=== PATIENT | female | born 1940 | race Caucasian/White ===

== ENCOUNTER 2018-05-23 17:22 | Emergency (ER) | payer MEDICARE, OTHER ==
[~2018-05-23] VITALS: Ht 152.4 cm; Wt 62.6 kg
[~2018-05-23 17:22] MED LIST: LEVOTHYROXINE150 MCG PO; LOSARTAN-HCTZ1 EACH PO; MIRAPEX0.5 MG PO; VENLAFAXINE HCL75 MG PO
== END 2018-05-23 18:58 | disposition home or self-care (01) ==
LOC: ED 17:22
DX: S93.401A Sprain of unspecified ligament of right ankle, initial encounter (principal); X50.9XXA Other and unspecified overexertion or strenuous movements or postures, initial encounter; I10 Essential (primary) hypertension; E03.9 Hypothyroidism, unspecified; Z79.899 Other long term (current) drug therapy
CPT/HCPCS: 73590; 73610; 73630; 99283

== ENCOUNTER 2022-01-22 12:59 | Inpatient (IN) | payer MEDICARE, OTHER ==
[~2022-01-22] VITALS: Ht 152.4 cm; Wt 58.2 kg
[2022-01-22] MEDS ORDERED: VENLAFAXINE HCL75 M1 PO (14:20)
[2022-01-22] MEDS ORDERED: LEVOTHYROXINE75 MCG PO (14:21)
[2022-01-22] MEDS ORDERED: PRAMIPEXOLE0.125 MG PO (14:21)
[2022-01-22] MEDS ORDERED: VITAMIN D21250 MCG PO (14:22)
[2022-01-22] MEDS ORDERED: LOSARTAN-HCTZ1 EAC2 PO (14:22)
--- NOTE | 2022-01-22 19:59 | NUR ---
IN ROOM TO COMPLETE ADMISSION HX WITH PT. SHE IS DROWSY AFTER RECEIVING PAIN MEDICATION NOT LONG AGO. SHE ANSWERS SOME QUESTIONS APPROPRIATELY BUT OTHER QUESTIONS SHE WAS ANSWERING FOR HER RAY WHICH IS NOT PRESENT. IV FLUIDS ARE INFUSING PER MD ORDERS AND PT IS RESTING WITH EYES CLOSED. RR IS EVEN AND UNLABORED. CALL LIGHT IS CLOSE AND BED ALARM IS ON.
--- NOTE | 2022-01-22 22:06 | NUR ---
SURGEON IN TO SEE PT. PT DENIES ANY NEEDS. NOT IN PAIN AT THIS TIME. CALL LIGHT WITHIN REACH.
--- NOTE | 2022-01-23 01:00 | NUR ---
HAS BEEN DOZING OFF AND ON. TOOK MEDS WITH SIP OF WATER. AWARE OF NPO STATUS. TORADOL GIVEN FOR PAIN. EKG COMPLETED BY RT.
--- NOTE | 2022-01-23 01:10 | NUR ---
ECG DONE AND PLACED IN CHART.
--- NOTE | 2022-01-23 04:05 | NUR ---
PT COMPLAINING OF HER ABDOMEN HURTING. "7-8" PT LAYING ON HER LEFT SIDE, MOANING. PT GIVEN 4 MG IV MORPHINE SLOW PUSH. CALL LIGHT IN REACH.
--- NOTE | 2022-01-23 06:18 | NUR ---
PT AMBULATES TO BR WITHOUT ANY ISSUE. HAS BEEN MEDICATED WITH MORPHINE AND TORADOL NEEDED. MORPHINE GIVEN X2 AND TORADOL ONCE. NPO SINCE ARRIVAL TO FLOOR WITH THE EXCEPTION OF SIPS WITH MEDS LAST NIGHT. HAS HAD NO C/O NAUSEA THIS SHIFT.
--- NOTE | 2022-01-23 07:28 | NUR ---
REPORT RECEIVED FROM LESA GUERRA. PT RESTING ON LEFT SIDE WITH EYES CLOSED. RESPIRATIONS EVEN AND UNLABORED. BED RAILS UP. CALL LIGHT WITHIN REACH. PT ALLOWED TO REST.
--- NOTE | 2022-01-23 07:55 | NUR ---
PT AWAKE IN BED TALKING ON THE PHONE. WHITE BAORD UPDATED. CALL LIGHT IN REACH. BED ALARM ON. NO FURTHER NEEDS AT THIS TIME.
--- NOTE | 2022-01-23 08:40 | NUR ---
MORNING ASSESSMENT AND MEDICAITON DUE. PT RETURNED FROM X-RAY. PT NAUSEATED WITH MOVEMENT AND LESA AGRCIA, REPORTS THAT PT HAS SOME EMESIS WHILE GETTING BACK INTO BED. PT REPORTS 4/10 PAIN IN RIGHT UPPER QUADRANT OF ABDOMENT. SEE MAR FOR MEDICATIONS GIVEN. PT VERY DROWSY, PT OPENS EYES TO VOICE BUT STAIRS OFF INTO SPACE, DOES NOT WANT TO TRACK THIS RN'S FINGER WITH EYES. PT REPORTS FEELING CONFUSED. PT ORIENTED TO PLACE, EVENTS, SELF AND SITUATION. PT DISORIENT TO DATE/TIME/YEAR. PT VERY MINIMAL WITH WORDS. PT DOES STATE "OW" FRQUENTLY. PUPILS PINPOINT. RESPIRATORY RATE OF 10-12 WITH OXGYEN SATURATION OF 90% ON ROOM AIR. PT PLACED ON 2L O2 BY NC TO MAINTAIN OXYGEN SATURATIONS ABOVE 94%. CRACKELS NOTED IN BASES OF LUNGS. I.S. PROVIDED. SCD'S IN PLACE. BOWEL TONES HYPOACTIVE. ABDOMEN TENDER TO TOUCH AND PT REPORTS ABDOMEN FEELS SWOLLEN. MILD DISTENTION NOTED. ABDOMEN REMAINS SOFT. LESA GARCIA, REPORTS PT HAD STRESS INCONTINACE WITH EMESIS EPSODE. MEDICATIONS GIVEN WITH A SMALL SIP OF WATER. PT RESTING IN BED ON BACK, BED RAILS UP. CALL LIGHT WITHIN REACH.
--- NOTE | 2022-01-23 08:54 | NUR ---
THIS RN TO ROOM TO CHECK ON PT. PT REPORTS 0/10 PAIN STATING "IT'S BETTER NOW. PT DENIES NAUSEA. PT REMAINS VERY DROWSY AND HAS TROUBLE KEEPING EYES OPEN. 2L O2 BY NC REMAIN IN PLACE. CALL LIGHT WITHIN REACH. HEAD OF BED ELEVATED TO 30 DEGREES. BED RAILSUP.
--- NOTE | 2022-01-23 09:34 | NUR ---
DR. WARNER TO BEDSIDE. UPDATED ON PT STATUS. NEW ORDERS FOR POTASSIUM AND MAGNESIUM. GIVEN BY LESA RICHTER. PT REPORTS 2/10 PAIN IN RIGHT UPPER QUADRANT. PT UPDATED ON PLAN OF CARE. PTS PARNTER AT BEDSIDE, UPDATED ON PLAN OF CARE. NO ADDITIONAL REQUESTS OR COMPLAINTS. CALL LIGHT WITHIN REACH. BED RAILS UP.
--- NOTE | 2022-01-23 10:04 | NUR ---
PT READY FOR SURGERY, PRE OP CHECK LIST COMPLETE. CONSENT SIGNED. PT UP TO RESTROOM TO VOID WITH STAND BY ASSIST. PT REPROTS 2/10 PAIN IN RIGHT UPPER QUADRANT. PT DENIES NAUSEA. CHG WIPE DOWN COMPLETED. PT VERBALIZES UNDERSTANDING OF PROCEEDURE AND STATES HER QUESTIONS HAVE BEEN ANSWERED. NO ADDITIONAL REQUESTS OR COMPLAINTS AT THIS TIME. AWAITING OR TEAM ARRIVAL. BED RAILS UP. CALL LIGHT WITHIN REACH.
--- NOTE | 2022-01-23 10:08 | NUR ---
PRE OP WIPES AND GOWN CHANGE IN PREP FOR SURGERY. RESTS COMFORTABLY IN BED. NO NEEDS VOICED.
--- NOTE | 2022-01-23 10:41 | NUR ---
CALL PLACED TO DR WARNER FOR CLARIFICATIN ON POTASSIUM ORDERS. AWAITING CALL BACK.
--- NOTE | 2022-01-23 10:44 | NUR ---
CALL PLACED TO SARA KELLOGG, PTS DAUGHTER, PT PT REQUEST. NO ANSWER AT THIS TIME. MESSAGE LEFT REQUESTING RETURN CALL.
--- NOTE | 2022-01-23 10:46 | NUR ---
SARA KELLOGG, RETURNED PHONE CALL. SARA UPDATED ON PTS STATUS AND PLAN OF CARE. SARA VERBALIZES UNDERSTANDING AND STATES HER QUESTIONS HAVE BEEN ANSWERED.
--- NOTE | 2022-01-23 11:27 | NUR ---
RETURN CALL FROM DR. WARNER WHO STATES TO GIVE POTASSIUM ORDERED.
--- NOTE | 2022-01-23 11:33 | NUR ---
THIS RN TO ROOM TO CHECK ON PT. PT RESTING IN BED ON BACK. PT ALERT AND ORIENTED. 1ST DOES OF POTASSIUM CONTINUES TO INFUSE, 2ND DOSE TO BE GIVEN WHEN FIRST DOSE FINISHES. PT REPORTS 0/10 PAIN AND DENIES NAUSEA. PT VERBALIZES UNDERSTANDING OF PLAN OF CARE. NO ADDITIONAL REQUESTS OR COMPLAINTS. CALL LIGHT WITHIN REACH. BED RAILS UP.
--- NOTE | 2022-01-23 12:28 | NUR ---
THIS RN TO ROOM TO CHECK ON PT. PT RESTING WITH EYES CLOSED. PT AWAKENS TO VOICE. PT REPORTS 0/10 PAIN AND 0/10 NAUSEA. PT REPROTS SHE HAS NO REQUESTS OR COMPLAINTS AT THIS TIME. CALL LIGHT WITHIN REACH. BED RAILS UP.
--- NOTE | 2022-01-23 13:40 | NUR ---
PUMP ALARMING, IV POTASSIUM COMPLETE. IV FLUIDS CONTINUE. PT RESTING ON RIGHT SIDE. PT DENEIS PAIN AND NASUEA. NO ADDITIONAL REQUESTS OR COMPLAINTS. CALL LIGHT WITHIN REACH. BED RAILS UP.
--- NOTE | 2022-01-23 14:51 | NUR ---
OR TEAM ARRIVED TO TAKE PT TO SURGERY. BEDSIDE BLOCK DONE BY MADDISON GOLD. PT TOELRATED BLOCK WELL. IV FLUIDS STOPPED. IV ABX GIVEN PRE OP (SEE MAR). PT VERBALIZES UNDERSTANDING OF PLAN OF CARE. NO ADDITIONAL REQUESTS OR COMPLAINTS. REPORT GIVEN TO AZUL QUINTERO RN. PT TO OR.
--- NOTE | 2022-01-23 15:19 | EKG ---
[facility] [address] [facility] [place] [address] Signed Normal sinus rhythm Nonspecific T wave abnormality Abnormal ECG When compared with ECG of 18-JAN-2017 12:48, T wave inversion more evident in Anterolateral leads QT has lengthened Confirmed by SNOW DE LA FUENTE MD ([id number]) on 01/23/2022 3:19:30 PM Electronically Signed By: SNOW DE LA FUENTE MD 01/23/22 1519 PATIENT NAME: LIYA WILSON Electrocardiogram DATE OF : 40 PHYSICIAN: SNOW DE LA FUENTE MD REPORT #: [id number] REPORT IS CONFIDENTIAL AND NOT TO BE RELEASED WITHOUT AUTHORIZATION
--- NOTE | 2022-01-23 15:45 | NUR ---
SARA, PTS DAUGHTER, CALLED FOR UPDATE ON PT STATUS. SARA UPDATED AND STATES HER QUESTIONS HAVE BEEN ANSEWERED.
--- NOTE | 2022-01-23 16:04 | NUR ---
Medications reconciled
--- NOTE | 2022-01-23 16:08 | NUR ---
Patient's medications reconciled
--- NOTE | 2022-01-23 18:34 | NUR ---
01/23/22 183 Borges,Do Horner 1825: 02 MASK REMOVED. PATIENT ON ROOM AIR. DENIES PAIN. DROWSY. 183: NASAL CANNULA PLACED ON PATIENT AT 1 L/MIN FOR O2 SAT DOWN TO 90% ON ROOM AIR.
--- NOTE | 2022-01-23 19:00 | NUR ---
PT ARRIVED FROM PACU. REPORT RECEIVED FROM LESA LUONG. MARI Burnham AT BEDSIDE FOR REPORT. DAY REPORT GIVEN TO MARI Burnham WELL. VITAL SIGNS STABLE. PT REMAINS ON 1L O1 BY NC. CONTINIOUS PULSE OX IN PLACE. T-TUBE DRAINING SMALL AMOUNTS OF YELLOW FLUID. DASH DRAINING SMALL AMOUNTS OF RED FLUID. ACTICOAT INTACT WITH 2 PINPOINT SPOTS OF DARK RED SHADOWING. PT OPENS EYES TO VOICE BUT DOES NOT ANSWER QUESTIONS APPROPRIATLY. WHEN ASKED IF SHE NEEDS PAIN MEDIATION PT STATES "4" REPEADLY. PT ORIENTED TO PLACE AND SITUATION BUT NOT TO DATE/TIME/YEAR. PT REPORTS 4/10 "INTERMITTANT" PAIN AND FALLS QUICKLY TO SLEEP. PT RESTING ON LEFT SIDE IN POSITION. MARI Burnham ASSUMING CARE OF PT. IV FLUIDS STARTED. BED RAILS UP. BED ALARM ON. CALL LIGHT [facility] Healthcare[facility] REACH.
--- NOTE | 2022-01-23 20:31 | NUR ---
pt RESTING IN BED, POST OP VSS. IV SITE FLUSHED WNL, BRISK BLOOD RETURN. IV ANTIBIOTIC INFUSING ORDERED. 1L OXYGEN BY NC IN PLACE. pt DROWSY, REQUESTING TO REST. CALL LIGHT IN REACH.
--- NOTE | 2022-01-23 22:04 | NUR ---
POST OP VSS. pt RESTING IN BED. G TUBE IN PLACE. SWEET DRAINING YELLOW URINE. pt DENIES PAIN. IV ANTIBIOTIC INFUSING WNL.
--- NOTE | 2022-01-23 23:45 | NUR ---
ALERT. DRINKING APPLE JUICE AND EATING JELLO. DENIES ANY PAIN, NAUSEA, SOB. DASH EMPTIED. ALL NEEDS MET.
--- NOTE | 2022-01-24 02:24 | NUR ---
pt appears asleep. Respirations even and unlabored. O2 continous monitoring in place. O2 sat 95% on 1 lpm via NC. SCD's have been on since arrival from PACU.
--- NOTE | 2022-01-24 04:11 | NUR ---
IV ANTIBIOTIC INFUSING. PT ASSESSED AND VS TAKEN. IVORY DRAIN COMPRESSED. MORPHINE 4 MG GIVEN FOR C/0 PAIN.
--- NOTE | 2022-01-24 06:38 | NUR ---
NO ISSUES DURING THE NIGHT. MEDICATED FOR PAIN X1. HAS TOLERATED A CLEAR LIQUID DIET. IVORY DRAIN COMPRESSED. HAS KEPT SCD'S ON ALL SHIFT. O2 MONITORING ALL SHIFT. HR HAS BEEN IN THE LOW 100'S AT TIMES. ON 1 LPM O2 VIA NC.
--- NOTE | 2022-01-24 07:43 | NUR ---
REPORT RECIEVED FROM MARI Burnham RN
--- NOTE | 2022-01-24 08:43 | NUR ---
MORNING ASSESSMENT DONE. PATIENT SITTING UP TO EAT CLEAR LIQUIDS. PATIENT ON 1L AT 96%, INSTRUCTED ON I/S, PATIENT CURRENTLY ON RA AT 92%. PATIENT RATES ABD PAIN 2/10. RUQ SURGICAL DRESSING INTACT. T-TUBE IS DRAINING BILE AND EMPTIED FOR 20ML, DASH EMPTIED FOR 7ML SEROSANGUOUS DRAINAGE.
--- NOTE | 2022-01-24 09:42 | NUR ---
PT AWAKE IN BED. PT HAS CONFUSION WITH THE NASAL CANNULA AND SWEET TUBES. PT IS CONVERSATIONAL AND PLEASANT. CALL LIGHT IN REACH. BED ALARM ON. NO FURTHER NEEDS AT THIS TIME.
--- NOTE | 2022-01-24 10:01 | NUR ---
PATIENT GIVEN MORNING MEDICATIONS, 4MG OF IV MORPHINE IN ANTICIPATION OF MOVING TO CHAIR.
--- NOTE | 2022-01-24 10:15 | NUR ---
PATIENT UP TO AMBULATE FOR A SHORT WALK IN HALLWAY.
--- NOTE | 2022-01-24 10:15 | NUR ---
Spoke with pt and she states she lives with her SO, Yun. Plans on dc to home when released. Denies needs and states Yun will assist her by grocery shoppings, cooking, and salon sales consultant. She also states her daughter from [place] will be here and stay with her for two weeks. She denies needs, states she is usually active, does not use any DME. Denies financial issues, does qualify for food stamps.
--- NOTE | 2022-01-24 11:27 | NUR ---
PATIENT'S SPOUSE IN TO VISIT PATIENT, INDICATED THAT PATIENT'S DAUGHTERS WOULD BE IN TOWN TO HELP THIS MONDAY.
--- NOTE | 2022-01-24 12:50 | NUR ---
PATIENT SITTING UP TO CHAIR FOR LUNCH. T-TUBE EMPTIED OF 40ML BILE, DASH OF 20ML SEROSANGUIOUS DRAINAGE. 3 HOUR MERRUM INFUSING GOING TO Y-SITE YEAR IV INSERTION SITE. PATIENT DENIES PAIN AT THIS TIME.
--- NOTE | 2022-01-24 14:20 | NUR ---
PT AWAKE IN CHAIR WITH VISITOR IN ROOM. CALL LIGHT WITHIN REACH. NO FURTHER NEEDS AT THIS TIME.
--- NOTE | 2022-01-24 16:13 | NUR ---
PATIENT UP TO CHAIR, DOZING OFF AND ON, DENIES PAIN AT REST. PATIENT HAS DONE WELL WITH WALKING IN THE HALLWAY TWICE TODAY.
--- NOTE | 2022-01-24 16:18 | NUR ---
DR. WARNER IN TO SEE PATIENT, PLAN TO ADVANCE DIET TO REGULAR, REMOVE SWEET CATHETER.
--- NOTE | 2022-01-24 18:32 | NUR ---
PATIENT MOVED FROM CHAIR UP TO BATHROOM FOR SMALL VOID AFTER HAVING SWEET CATHETER D/C'D. SCD'S AND BED ALARM ARE ON.
--- NOTE | 2022-01-24 18:56 | NUR ---
PATIENT UP IN CHAIR AT THIS TIME. VITALS AND I&O'S CHARTED. CALL LIGHT IN REACH. CHAIR ALARM ON. NO FURTHER NEEDS AT THIS TIME.
--- NOTE | 2022-01-24 19:33 | NUR ---
REPORT RECEIVED FROM LESA RONDON. pt RESTING IN BED, DROWSY, EYES CLOSED, AWAKENS TO VOICE. INCISION CDI ON ABDOMEN WITH ACTICOAT DRESSING. TTUBE WITH BROWN/YELLOW LIQUID BILE DRAINAGE, DASH WITH SEROSANGUINOUS FLUID IN BULB. pt DENIES PAIN. CLOSING EYES. IVF INFUSING WNL ORDERED. BED ALARM ON.
--- NOTE | 2022-01-24 20:55 | NUR ---
pt AWAKE WHEN RN ENTERS ROOM. DENIES PAIN AT REST. SBA TO RESTROOM FOR VOID, 225 MLS CLEAR YELLOW URINE. pt WASHED HANDS AND BACK TO BED. SCDS ON. ASSESSMENT COMPLETE. SOME PAIN WITH MOVEMENT. PRN OFIRMEV ADMINISTERED WNL. IV SITE FLUSHED WNL, GOOD BLOOD RETURN. BOWEL TONES HYPOACTIVE X 4, ABD SOFT, NON-TENDER WITH PALPATION. DRESSING CDI. DASH DRAIN EMPTIED 14 MLS SEROSANGUINOUS FLUID AND TTUBE EMPTIED 60 MLS BILE COLOR. IV ANTIBIOTIC NOW INFUSING WNL. BED ALARM ON. CALL LIGHT IN LAP. pt DRINKING ICE WATER. WARM BLANKET PROVIDED.
--- NOTE | 2022-01-25 00:08 | NUR ---
IV ANTIBIOTIC COMPLETE. IVF INFUSING WNL. pt DENIES ANY NEEDS. CALL LIGHT IN REACH. BED ALARM ON.
--- NOTE | 2022-01-25 02:16 | NUR ---
CHECKED ON pt. RESTING IN BED WITH EYES CLOSED. NO DISTRESS NOTED, BREATHING EQUAL AND UNLABORED. IVF INFUSING WNL. SCDS ON. BED ALARM IN PLACE.
--- NOTE | 2022-01-25 03:50 | NUR ---
CALL LIGHT ANSWERED. SBA TO RESTROOM WITH LESA PASTOR. pt BACK IN BED. ASSESSMENT COMPLETE. pt DENIES ANY PAIN AT REST, STATES "SOME" WITH MOVEMENT. DENIES NEEDS FOR PRN PAIN MEDICATIONS. REQUESTING TO SLEEP. BOWEL TONES HYPOACTIVE X 4, ABD SOFT. T TUBE WITH SMALL AMT BROWN/YELLOW LIQUID, DASH WITH SEROSANGUINOUS FLUID. STERI STRIPS CDI, ACTICOAT CDI. SCDS ON. IV ANTIBIOTIC INFUSING WNL ORDERED. CALL LIGHT IN REACH. BED ALARM ON.
--- NOTE | 2022-01-25 07:43 | NUR ---
REPORT FROM LESA CLINTON. PT UP TO RESTROOM SBA. PT A LITTLE CONFUSED THIS MORNING. OFIRMEV GIVEN FOR 3\10 PAIN.
--- NOTE | 2022-01-25 10:00 | NUR ---
Spoke with Dr. maldonado plan for dc today. Pt improving.
--- NOTE | 2022-01-25 10:19 | NUR ---
VITALS TAKEN PATIENT EXPRESSED WANTING SOMETHING TO GET RID OF PHLEM IN THROAT, WILL GET TEA, PATIENT SITTING IN CHAIR AND RESTING NO OTHER NEEDS AT THIS TIME
--- NOTE | 2022-01-25 10:34 | NUR ---
PT WALKED INTO RESTROOM AND BACK TO BED AFTER PLACING A CHAIR ALARM ON SEAT. PT ATTEMPTING TO GET HERSELF UP WHEN WE ENTERED ROOM. PT USING IS IN BED.
--- NOTE | 2022-01-25 11:49 | NUR ---
DR WARNER IN TO SEE PT. UP IN CHAIR RESTING. CHANGED OUT TTUBE BAG FOR AUTOCLAVE PER DR ALICIA.
--- NOTE | 2022-01-25 12:40 | NUR ---
PT SOUND ASLEEP, DID NOT DISTURB. WILL CHECK BACK
--- NOTE | 2022-01-25 13:15 | NUR ---
ADMINISTERED AB WITH RN STUDENT PARAM. PT TOLERATED WELL AND ASSISTED TO RESTROOM. NO CONCERNS ATT.
--- NOTE | 2022-01-25 14:52 | NUR ---
PATIENT UP TO BATHROOM AND BACK TO CHAIR, SBA. CHAIR ALARM ON. VITALS AND I&O'S DONE BY PERIODONTAL ASSISTANT. THIS FILLING STATION ATTENDANT IN TO CHECK ON PATIENT. CALL LIGHT IN REACH. NO FURTHER NEEDS AT THIS TIME.
--- NOTE | 2022-01-25 18:15 | NUR ---
PT GIVEN AB AND TYLENOL FOR ALL OVER BODY ACHES. [employer]NA[employer] JONATHAN IN ROOM DOING VS. EMPTIED DASH FOR 15ML. T TUBE CLAMPED. NO NAUSEA REPORTED.
--- NOTE | 2022-01-25 18:24 | NUR ---
PT RESTING IN CHAIR WITH EYES CLOSED. CALL LIGHT ON LAP.
--- NOTE | 2022-01-25 19:30 | NUR ---
REPORT RECEIVED FROM LESA GOMEZ. pt RESTING IN BED, VISITING WITH WHO IS AT BEDSIDE. pt DENIES PAIN, DENIES NAUSEA. T TUBE IS CLAMPED. DENIES TOILETING NEEDS. BED ALARM ON.
--- NOTE | 2022-01-25 19:50 | NUR ---
bed alarming. PATIENT GOT UP TO USE THE BATHROOM. SBA. PATIENT IS BACK IN BED. NO OTHER NEEDS AT THIS TIME. BED ALARM ON FOR SAFETY.
--- NOTE | 2022-01-25 20:41 | NUR ---
BED ALARMING. SBA TO THE BATHROOM AND BACK TO BED. BED ALARM ON. CALL LIGHT WITHIN REACH.
--- NOTE | 2022-01-25 21:08 | NUR ---
pt RESTING IN BED. DENIES PAIN. ASSESSMENT COMPLETE. BOWEL TONES ACTIVE X 4. ABD SOFT. NON-TENDER WITH PALPATION. DASH DRAIN EMPTIED, 3 MLS SEROSANGUINOUS FLUID. T TUBE CLAMPED. DRESSINGS CDI. IV SITE FLUSHED WNL. pt C/O RESTLESS LEGS. SCHEDULED MEDICATIONS ADMINISTERED, EDUCATION PROVIDED. PERSONAL SUPPLIES IN REACH. SCDS ON. CALL LIGHT IN REACH. BED ALARM IN PLACE.
--- NOTE | 2022-01-25 21:34 | NUR ---
BED ALARM SOUNDING. SBA TO RESTROOM FOR VOID AND BACK TO BED. SCDS ON. pt CONTINUES TO COMPLAIN OF RESTLESS LEGS. DENIES PAIN IN ABDOMEN. BED ALARM ON.
--- NOTE | 2022-01-25 22:24 | NUR ---
BED ALARM SOUNDING. pt SHIFTING IN BED. COMPLAINS OF OVERALL DISCOMFORT. PRN PAIN MEDICATION ADMINISTERED. SNACK OF PEANUT BUTTER AND CRACKERS PROVIDED. BED ALARM ON. CALL LIGHT IN REACH.
--- NOTE | 2022-01-26 00:12 | NUR ---
pt RESTING IN BED WITH EYES CLOSED. BREATHING EQUAL AND UNLABORED. BED ALARM ON. SCDS IN PLACE.
--- NOTE | 2022-01-26 02:30 | NUR ---
CHECKED ON pt. RESTING IN BED WITH EYES CLOSED. BREATHING UNLABORED. BED ALARM IN PLACE.
--- NOTE | 2022-01-26 04:55 | NUR ---
CHECKED ON pt. RESTING IN BED WITH EYES CLOSED. BREATHING EQUAL AND UNLABORED. SCDS ON. BED ALARM IN PLACE.
--- NOTE | 2022-01-26 06:05 | NUR ---
pt AWAKE RN ENTERS ROOM. VSS. SBA TO RESTROOM FOR VOID AND BACK TO BED. pt RATES PAIN 3/10 WITH MOVEMENT. PRN PAIN MEDICATION ADMINISTERED. ASSESSMENT COMPLETE. 3 MLS SS DRAINAGE EMPTIED FROM DASH DRAIN. pt DENIES NAUSEA. BOWEL TONES ACTIVE. BED ALARM ON. LIGHTS OFF IN ROOM.
--- NOTE | 2022-01-26 06:45 | NUR ---
pt RESTED WELL THIS SHIFT AFTER PRN PAIN MEDICATION ADMINISTRATION. VOIDING QS. DASH DRAIN WITH 6 MLS SS DRAINAGE THIS SHIFT. T-TUBE CLAMPED. BED ALARM IN PLACE. IV SL.
--- NOTE | 2022-01-26 07:15 | NUR ---
this rn recieved report from jen soler. pt appears to be resting at this time with respirations noted and bed alarm on
--- NOTE | 2022-01-26 08:10 | NUR ---
Pt doing well, cont. with DASH and capped T tube.
--- NOTE | 2022-01-26 08:40 | NUR ---
THIS RN IN PTS ROOM TO GIVE PT MORNING MEDS AND ASSESSMENT. PT DENIES PAIN AND DOES APPEAR TO BE DROSWY THIS AM. PT IS INTERESTED IN FOOD AND NEEDS NOTHING ELSE AT THIS TIME.
--- NOTE | 2022-01-26 09:57 | NUR ---
VITALS AND I&OS CHARTED. ROOM TIDIED
--- NOTE | 2022-01-26 11:12 | NUR ---
THIS RN IN PTS ROOM TO ENCOURAGE PT TO GET UP TO GO TO THE BATHROOM- PT ABLE TO VOID. DASH APPEARS TO HAVE VERY MINIMAL AMOUNT OF DRAINAGE IN BAG. T-TUBE CALMPED. PT UP TO CHAIR AND APPEARS MORE AWAKE AT THIS TIME. CALL LIGHT WITHIN REACH. CHAIR ALARM ON PT STATES THAT SHE NEEDS NOTHING ELSE
--- NOTE | 2022-01-26 12:19 | NUR ---
this rn in pts room to give pt scheduled abx. pt sitting up in chair and needs nothing else at this time. pt rates her pain 0/10. call light within reach, chair alarm on
--- NOTE | 2022-01-26 13:57 | NUR ---
PT ASLEEP-DID NOT DISTURB. WILL CHECK AGAIN
--- NOTE | 2022-01-26 15:20 | NUR ---
THIS RN IN PTS ROOM TO CHECK ON PT. PT SITTING UP TO CHAIR AND STATES THAT SHE IS DOING WELL. NO PAIN NOTED. THIS RN EMPTIED DASH DRAIN- 4ML TO EMPTY FOR THIS RNS SHIFT. PTS BELLY SOFT. PT REPORTS THAT SHE DOES NOT NEED TO VOID AT THIS TIME
--- NOTE | 2022-01-26 16:42 | NUR ---
THIS RN IN PTS ROOM TO CHECK ON PT. PT SITTING UP IN CHAIR. THIS RN HAD PT GO TO RESTROOM- PT ABLE TO VOID- AND THEN THIS RN AMBULATED WITH PT IN HALLS- PT ABLE TO DO A SMALL LAP AROUND UNIT AND THEN BACK TO BED. BED ALARM ON AND CALL LIGHT WITHIN REACH
[2022-01-26] MEDS ORDERED: ACETAMINOPHEN500 MG PO (17:55)
[2022-01-26] MEDS ORDERED: OXYCODON-ACETA1 EAC2 PO (17:55)
--- NOTE | 2022-01-26 18:00 | NUR ---
THIS RN IN PTS ROOM TO DO VITALS- PTS CHEEKS RED- PT UPSET THAT IS NOT PICKIN GUP PHONE TO COME GET HER. PT USED IS BP NOTED TO BE HIGH DUE TO STRESS AND FRUSTRATION- PT ABLE TO TAKE DEEP BREATHS AND BRING DOWN BP.
--- NOTE | 2022-01-28 17:35 | HP ---
[facility] [address] [place], [place] [address] Signed ADMISSION DATE: 01/22/2022 REASON FOR ADMISSION: Acute calculous cholecystitis, possible common duct obstruction. HISTORY: This 81-year-old white woman presented to the emergency room, evaluated by Dr. Corbin Bean with right-sided abdominal pain. The pain was consider "9/10" in severity. It began in the online editor hours and had a band-like configuration initially. It ultimately localized to the right side mostly in the right upper quadrant. Evaluation by Dr. Bean include a gallbladder ultrasound, which showed large stone wedged in the infundibulum as well as gallbladder wall polyp. The common duct was considered borderline at 9 mm. Concordant to these findings were markedly elevated liver enzymes including AST of 941, ALT 466, alkaline phosphatase of 231. Her bilirubin was 1.7. Her white count was normal at 10.4. Electrolytes were abnormal only for potassium of 3.2, creatinine is 0.66. Since admission, the patient has felt somewhat better. She has had no nausea or vomiting since admission, but had copious nausea and vomiting while at home. PAST MEDICAL HISTORY: Notable for hysterectomy through a midline incision. She has had cervical spinal fusion, right knee surgery, and plastic surgery of the face. She has not smoked. She does not drink or use illicit drugs. MEDICATIONS: At home include venlafaxine, pramipexole, Synthroid, losartan, hydrochlorothiazide, and vitamin D2. SOCIAL HISTORY: She has lived in [place] for the past 3 years. She is . Her is not in good health. Her is her 2nd . Her first several years ago. She has lived in [place] most of her life. She has adult children, who live elsewhere including [place]. REVIEW OF SYSTEMS: She currently does not have severe right-sided abdominal pain. She feels generally unwell, however. She is not nauseated. Denies any chest pain or shortness of breath. Electronically Signed By: TIMO WARNER MD 01/28/22 1735 PATIENT NAME: LIYA WILSON HISTORY AND PHYSICAL DATE OF : 40 REPORT #: [id number] PHYSICIAN: TIMO WARNER MD PCP: TOMAS YANCEY MD REPORT IS CONFIDENTIAL AND NOT TO BE RELEASED WITHOUT AUTHORIZATION [facility] [address], [place] [address] Signed PHYSICAL EXAMINATION: GENERAL: This is a pleasant elderly white woman, who is alert and oriented. She shows no sign of systemic toxicity at this time. VITAL SIGNS: Temperature is 97.8, pulse 85, blood pressure 181/75. HEENT: Trachea is midline. Room air saturation is 94%. She has no jugular venous distention or palpable mass. CHEST: Clear. HEART: Regular without murmur. ABDOMEN: Not distended. A long midline incision is noted extending from the umbilicus to the pubis. She has no abdominal distention. There is no sign of incisional hernia. She has only mild tenderness to the right upper abdomen. There is no palpable mass. EXTREMITIES: Show no clubbing, cyanosis, or edema. Her ultrasound study was reviewed in detail by me. Labs were reviewed as well. ASSESSMENT: The patient appears clinically to have acute calculous cholecystitis. She does have some mildly dilated intrahepatic ductal structures up to 9 mm in size. Although, she could have distal common duct obstruction with stones. 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 I would recommend IV antibiotics, continued IV fluid administration, anticipating cholecystectomy preferred by laparoscopic approach tomorrow. Discussed with her the risks of bleeding, infection, need for common duct exploration and of course, need for open procedure including open common duct exploration. Understanding all these issues, she wishes to proceed. The risks of bleeding, infection, bile duct injury, and of course failure to cure her problem were reviewed as well. In addition to the aforementioned interventions, we will obtain a 12-lead EKG given her advanced age. A chest x-ray may be beneficial as well. We would anticipate this operation to be performed tomorrow between and most likely. Timo Warner MD JM/MODL /[id number] Electronically Signed By: TIMO WARNER MD 01/28/22 1735 PATIENT NAME: LIYA WILSON HISTORY AND PHYSICAL DATE OF : 40 REPORT #: [id number] PHYSICIAN: TIMO WARNER MD PCP: TOMAS YANCEY MD REPORT IS CONFIDENTIAL AND NOT TO BE RELEASED WITHOUT AUTHORIZATION [address] [address] Signed cc: MD Corbin Neal MD Copies: TOMAS YANCEY DMD, WILLIAM S MD ~ Electronically Signed By: TIMO WARNER MD 01/28/22 1735 PATIENT NAME: LIYA WILSON HISTORY AND PHYSICAL DATE OF : 40 REPORT #: [id number] PHYSICIAN: TIMO WARNER MD PCP: TOMAS YANCEY MD REPORT IS CONFIDENTIAL AND NOT TO BE RELEASED WITHOUT AUTHORIZATION
--- NOTE | 2022-01-30 16:30 | OR ---
[facility] [address] [place], [place] [address] Signed DATE OF OPERATION: 01/23/2022 SURGEON: Timo Warner MD PREOPERATIVE DIAGNOSIS: Acute cholecystitis with probable common duct stones (choledocholithiasis). POSTOPERATIVE DIAGNOSIS: Severe gangrenous cholecystitis with complete obstruction of common duct and friable liver bed. PROCEDURES: 1. Laparoscopy with conversion to open cholecystectomy, prolonged, complicated and difficult. 2. Intraoperative cholangiogram. 3. Open common bile duct exploration. 4. Flexible choledochoscopy of common duct with placement of T-tube. 5. Omental pedicle flap application to bleeding liver bed. ANESTHESIA: General endotracheal, Nick Sawyer CRNA and preoperative bilateral lumbar type blocks. INDICATION: This 81-year-old white woman presented to the emergency room on January 22 yesterday with generalized abdominal pain and markedly elevated liver enzymes including elevated bilirubin. She had tenderness in the upper abdomen. IV antibiotics were administered as well as IV fluids and so forth, anticipating laparoscopic cholecystectomy and possible laparoscopic common duct exploration. Her liver enzymes worsened over night and she has more symptoms at this point despite efforts of fluid resuscitation, pain medication administration, and so forth. Her potassium was low and therefore was repleted prior to proceeding with operation today. The patient and her understand the risk of bleeding, infection, bile duct injury, need for open procedure, need for common duct exploration and other indicated procedures. Understand this, they wished to proceed. FINDINGS: The gallbladder was massively distended far more than expected. There was bile staining throughout the upper abdomen, though no actual bile leak proper. Gangrenous cholecystitis was ultimately identified. Conversion to open operation was required on Electronically Signed By: TIMO WARNER MD 01/30/22 1630 PATIENT NAME: LIYA WILSON OPERATIVE REPORT DATE OF : 40 REPORT #: [id number] PHYSICIAN: TIMO WARNER MD PCP: TOMAS YANCEY MD REPORT IS CONFIDENTIAL AND NOT TO BE RELEASED WITHOUT AUTHORIZATION [facility] [address] [place], [place] [address] Signed the basis of adhesions, friability of the gallbladder and so forth. The gallbladder liver bed was very friable for which bleeding was significant and required additional special effort for control, which was ultimately accomplished. The gallbladder itself had a single large 2.5 cm stone, but there was lots of puddy like sludge and debris. Initial cholangiogram showed complete obstruction of the bile duct as clinically suspected and therefore common bile duct exploration was undertaken allowing for clearance of the duct with irrigation as well as flexible choledochoscopy interventions. Special efforts for control of liver bed bleeding were undertaken with the use of cautery, Gel-Foam, Betty, fibrin glue and ultimately an omental pedicle graft. DESCRIPTION OF PROCEDURE: The patient was brought to the operating room, given a general endotracheal anesthetic. Preoperative antibiotic Ancef had been given. Sequential compression device stockings were used. Preoperative TAP and/or lumbar blocks were undertaken by the tribal delegate. A Ibrahim catheter was placed after induction of anesthesia. The abdomen was prepared with a chlorhexidine solution and draped sterilely. Palpation revealed no palpable gallbladder and no ascites. An infraumbilical incision was made and using an open Delmy cannula technique, the abdomen was entered. Inspection of the upper abdomen showed a markedly distended gallbladder far greater than clinically suspected with dense filmy proteinaceous adhesions to the anterior abdominal wall and elsewhere. Significant bile staining was noted. An epigastric port was placed, but dense omental adhesions and a very confined work space for laparoscopic approach was noted and I deemed it is advisable simply to convert to open operation, particularly mindful of her high probability for need for common duct exploration, even if a laparoscopic approach might be possible. The trocars were removed and the infraumbilical fascial incision was reapproximated with interrupted 0 Vicryl suture. The right subcostal incision was made extending the epigastric port site incision laterally and dissection carried through the subcutaneous tissue. The anterior rectus sheath was divided as was the rectus abdominis muscle and ultimately posterior rectus sheath, allowing for entry into the abdomen. A Bookwalter retractor was affixed to the table. The gallbladder was quite massively distended, markedly inflamed and upon better exposure found to be gangrenous and thin-walled. With the Bookwalter retractors, additional exposure was provided after taking down dense omental and surrounding tissue adhesions with electrocautery and blunt dissection. Even before much manipulation of the gallbladder, there appeared to be some avulsion of the gallbladder from the liver bed as the soft tissues were quite friable and fragile. These areas were packed initially with some laparotomy packs and attention turned Electronically Signed By: TIMO WARNER MD 01/30/22 9273 PATIENT NAME: LIYA WILSON OPERATIVE REPORT DATE OF : 40 REPORT #: [id number] PHYSICIAN: TIMO WARNER MD PCP: TOMAS YANCEY MD REPORT IS CONFIDENTIAL AND NOT TO BE RELEASED WITHOUT AUTHORIZATION [address] [address] Signed towards decompression of the gallbladder. 2-0 silk suture was used to make a pursestring in the apex of the gallbladder. The gallbladder was entered and egress of clear green bile was noted. Complete decompression of the gallbladder was afforded and a large palpable stone was noted in the neck of the gallbladder. A pursestring suture was secured so as to avoid and minimize bile leak. The peritoneum on the superior aspect was incised with electrocautery and using blunt and electrocautery dissection with a delicate technique, a plane was developed between the gangrenous gallbladder wall and the bed of the gallbladder in relation to the liver. There appeared to be significant disruption of parenchyma with even minimal traction on the gallbladder. These areas were packed initially with some Gel-Foam and gauze and direct application of malleable retractors staunching the bleeding reasonably well. Further dissection of the gallbladder was then undertaken with meticulous care dissecting down to the infundibulum and ultimately an obvious cystic duct. The clamp was applied across the gallbladder cystic duct junction and a tonsil clamp applied to the cystic duct which was moderate in size. The cystic duct was transected. Cultures from the bed of the gallbladder were obtained and stat Gram stain showed a few gram-positive cocci and white cells as well. Additional packing of the gallbladder fossa which had venous oozing in a rather significant way was undertaken allowing for complete hemostasis. This included application of Gel-Foam and laparotomy packs. Plans were then made for cholangiogram. A cholangiocatheter was placed in the end of the cystic duct which was secured with a clip and under surgeon-directed fluoroscopy intraoperative cholangiography was undertaken. Free flow of contrast was noted in the cystic duct and the biliary tree, but there was no emptying whatsoever from the common duct into the duodenum. There appeared to be filling defect consistent with impacted stone or debris. Plans were then made for common duct exploration. The thin peritoneal lining over the common bile duct was easily incised identifying well the common bile duct. The cystic duct was triply clipped with large heavy clips. Two stay sutures were placed in the axial plane as low as possible in the common bile duct out of the 4-0 PDS suture. An incision was made in the common bile duct with an 11 blade, which allowed for egress of clear bile overall. There was some stone debris and sludge egressed as well. The choledochotomy was extended with Cruz scissors. Irrigation was undertaken with a bulb crusher foreman and some material was found to withdraw from the common bile duct. A flexible choledochoscope with video camera was applied into the common duct and evaluation retrograde fashion showed all the biliary radicles to be normal without sign of neoplasm or stone or debris. The scope was reoriented distally which allowed for vigorous irrigation within the duct and egress of debris. The flexible choledochoscope was of a caliber that would be unlikely able to pass through the ampulla without Electronically Signed By: TIMO WARNER MD 01/30/22 1630 PATIENT NAME: LIYA WILSON OPERATIVE REPORT DATE OF : 40 REPORT #: [id number] PHYSICIAN: TIMO WARNER MD PCP: TOMAS YANCEY MD REPORT IS CONFIDENTIAL AND NOT TO BE RELEASED WITHOUT AUTHORIZATION [address] [address] Signed dilation. The ampulla was identified. There appeared to be no more obstructing debris. The scope was removed and a 14 T-Tube was cut to the appropriate configuration and placed in the choledochotomy and the choledochotomy site closed with interrupted 4-0 PDS suture. Irrigations through the T-tube showed no evidence of leakage of saline. Repeat surgeon directed fluoroscopy was then undertaken. This effort showed good filling of the biliary tree with prompt emptying into the duodenum with no sign of filling defect or obstruction. An incidental pancreatogram was noted as well. The T-tube was found to have no leak and was later brought out through a stab incision inferior to the incision and left with some redundancy to allow for avoidance of dislodgement and was later secured to the skin with 2-0 nylon suture. Attention was then turned towards the liver bed. The bleeding had been staunched largely with laparotomy packs. Meticulous careful removal of laparotomy packs one at a time was undertaken showing a considerable amount of good hemostasis, but one area still with significant venous oozing. On that basis, a minimal amount of cautery was applied, but additional Gel-Foam and ultimately fibrin glue with aerosolized delivery system applied as well as gauze. After appropriate waiting period, the gauze was removed and much improvement was noted. Application of powdered hemostatic agent was additionally applied as were additional Gel-Foam wafers in the area of oozing in the lateral aspect. Additional fibrin glue was sprayed to the area and this was packed once again with plain gauze. An omental pedicle graft was then freed from the transverse colon, which was not far from the area and manipulated into the subhepatic space. Laparotomy pack was removed and the omentum applied to the area. Additional fibrin glue and Betty powdered agent applied and gentle application of pressure with a bare malleable retractor undertaken. Re-examination and irrigation showed no sign of ongoing bleeding and complete hemostasis afforded by this multiprong technique. Through a stab incision, 7 mm flat Dung drain was placed not in the subhepatic space but rather closer to the midline near the exit site of the T-tube as an accessory backup drain for the T-tube itself. The laparotomy packs were gently removed from the abdominal cavity and plans were made for closure. The posterior sheath and its attended peritoneum were closed with a running #1 PDS suture. Extreme care was taken to avoid incorporation of the drain of the T-tube in the closure stitch of course. The rectus muscle was irrigated with saline and the anterior Electronically Signed By: TIMO WARNER MD 01/30/22 1630 PATIENT NAME: LIYA WILSON OPERATIVE REPORT DATE OF : 40 REPORT #: [id number] PHYSICIAN: TIMO WARNER MD PCP: TOMAS YANCEY MD REPORT IS CONFIDENTIAL AND NOT TO BE RELEASED WITHOUT AUTHORIZATION [facility] [address] [place] [address] Signed rectus sheath similarly closed. Subcutaneous tissue was irrigated and the skin was then closed with running subcuticular 3-0 Vicryl. The umbilical skin was similarly closed with interrupted 3-0 Vicryl. Steri-Strips were applied to the incision sites. Drains were secured with OpSite. An Acticoat dressing was applied to the subcostal incision. The operation was rather prolonged, complicated and difficult due to the extent of dissection, hepatic bed bleeding and common duct exploration, but was accomplished safely. Blood loss was estimated between 400 to 500 mL. Sponge, needle, and instrument counts were reported as correct x3. The patient was extubated and ultimately transferred to the recovery room in good condition and doing well. MD GEORGES Covington/MITCHELLL /[id number] cc: MD Tomas Mauricio MD Copies: DORI AGUIRRE MD, ROBERT D DMD ~ Electronically Signed By: TIMO WARNER MD 01/30/22 1630 PATIENT NAME: LIYA WILSON OPERATIVE REPORT DATE OF : 40 REPORT #: [id number] PHYSICIAN: TIMO WARNER MD PCP: TOMAS YANCEY MD REPORT IS CONFIDENTIAL AND NOT TO BE RELEASED WITHOUT AUTHORIZATION
--- NOTE | 2022-01-30 16:30 | DS ---
[facility] [address] [place], [place] [address] Signed ADMISSION DATE: 01/22/2022 DISCHARGE DATE: 01/26/2022 REASON FOR ADMISSION: This 81-year-old white woman presented to the emergency room and was evaluated by Dr. Corbin Bean with right-sided abdominal pain, considered 9/10 in severity. Evaluation included a gallbladder ultrasound showing a large stone wedged in the infundibulum as well as gallbladder wall polyp or stone. The common duct was considered borderline enlarged at 9 mm. Concordant to these findings was markedly elevated panel of liver enzymes include an AST of 941, ALT of 466, alkaline phosphatase of 231, and bilirubin is at 1.7. Her white count was 10.4. She is admitted for further evaluation and care on the basis of acute cholecystitis with probable choledocholithiasis. PERTINENT PHYSICAL EXAMINATION: GENERAL: Showed a pleasant elderly woman, who is alert and oriented, showing no sign of systemic toxicity at that time. VITAL SIGNS: Temperature is 97.8, pulse 85, blood pressure 181/75. ABDOMEN: Nondistended. A long midline incision is noted from the umbilicus to the pubis related to prior hysterectomy. There is no abdominal distention. She had mild tenderness in the right upper abdomen. HOSPITAL COURSE: She was admitted, given intravenous fluid resuscitation, parenteral antibiotics, and on the following day, January 23, 2021 underwent laparoscopy anticipating laparoscopic cholecystectomy. She was found to have massively distended gallbladder and gangrenous changes and was promptly converted to open operation, mindful that avoidance of excessively long anesthesia time given her advanced age would be beneficial even if she required incision. This proved to be a good move as the gallbladder was extremely difficult to excise even with open technique. She did undergo open cholecystectomy and on cholangiogram was found to have filling defects within the biliary tree and ultimately underwent flexible choledochoscopy with clearance of the common duct and placement of a T-tube. An omental pedicle flap was applied to the bleeding liver bed as well. She quite notably had a completely gangrenous gallbladder and a friable liver bed, which prompted the need for special hemostatic measures in the liver bed itself. Postoperatively, her T-tube was allowed to remain to drainage and accessory Dung drain showed no sign of bile leak at all. She had progressive improvement on the day prior to discharge and was able to have the T-tube clamped off with a Clave device. There was no resultant nausea or adverse symptoms and her liver enzymes, which have been improving on Electronically Signed By: TIMO WARNER MD 01/30/22 1630 PATIENT NAME: LIYA WILSON DISCHARGE SUMMARY DATE OF : 40 REPORT #: [id number] PHYSICIAN: TIMO WARNER MD PCP: TOMAS YANCEY MD REPORT IS CONFIDENTIAL AND NOT TO BE RELEASED WITHOUT AUTHORIZATION [address] [address] Signed a daily basis were down to normal. This included a white count of 6.4, hematocrit of 27.8, and a Chem profile which was normal including a bilirubin of 0.7, down from a high of 6.4. Her alkaline phosphatase was 140, ALT 72, down from 554. By the time of discharge, she is ambulating well, tolerating a regular diet, has a T-tube capped off and the accessory drain removed and the incision is healing well. FOLLOWUP PLANS: She will call our office tomorrow anticipating a followup visit in 3 to 4 weeks at which time the T-tube will be removed. She likely does not need a repeat T-tube cholangiogram but later will be a consideration at that time. She will maintain any diet she wishes, there is no restriction related to her operative intervention. She should walk on a daily basis and avoid lifting more than 20 pounds for the next three weeks. The patient was begun on broad-spectrum antibiotic meropenem and transitioned to Cipro and Flagyl antibiotic. Protracted antibiotic therapy is deemed unnecessary in this situation. DISCHARGE MEDICATIONS: Will include: 1. Percocet 7.5/325 1-2 p.o. q.6 hours p.r.n. pain #10 or Tylenol 1000 mg p.o. q.6 hours as needed for pain #30. She will continue with her usual medication of venlafaxine ER 75 mg p.o. q. 24 hours. 2. Pramipexole 0.125 mg two tablets p.o. at bedtime. 3. Synthroid 75 mcg tab p.o. daily. 4. Losartan-hydrochlorothiazide 100/12.5 one p.o. daily. 5. Vitamin D2 ergocalciferol 1250 mg one cap p.o. weekly. She will call for appointment as previously described. DISCHARGE DIAGNOSES: 1. Severe and advanced gangrenous cholecystitis, status post laparoscopy with conversion to open cholecystectomy, prolonged, complicated and difficult including cholangiogram, flexible choledochoscopy, clearance of obstructed bile duct and placement of T-tube. 2. Hypothyroidism. 3. Hypertension. 4. Restless legs. Timo Warner MD Electronically Signed By: TIMO WARNER MD 01/30/22 6188 PATIENT NAME: LIYA WILSON DISCHARGE SUMMARY DATE OF : 40 REPORT #: [id number] PHYSICIAN: TIMO WARNER MD PCP: TOMAS YANCEY MD REPORT IS CONFIDENTIAL AND NOT TO BE RELEASED WITHOUT AUTHORIZATION [facility] [address] [facility] [place], [place] [address] Signed /[facility] /[id number] cc: Tomas Yancey MD Copies: TOMAS YANCEY DMD ~ Electronically Signed By: TIMO WARNER MD 01/30/22 1630 PATIENT NAME: LIYA WILSON DISCHARGE SUMMARY DATE OF : 40 REPORT #: [id number] PHYSICIAN: TIMO WARNER MD PCP: TOMAS YANCEY MD REPORT IS CONFIDENTIAL AND NOT TO BE RELEASED WITHOUT AUTHORIZATION
== END 2022-01-26 19:37 | disposition home or self-care (01) | DRG 416 ==
LOC: ED 12:59 → MS 13:00
PROVIDERS: ADMIT Surgery; ATTEND Surgery
PROC: 0FT40ZZ Resection of Gallbladder, Open Approach (ICD-10-PCS; principal; 2022-01-23 11:45)
PROC: 0FJ44ZZ Inspection of Gallbladder, Percutaneous Endoscopic Approach (ICD-10-PCS; 2022-01-23 11:45)
PROC: BF030ZZ Plain Radiography of Gallbladder and Bile Ducts using High Osmolar Contrast (ICD-10-PCS; 2022-01-23 11:45)
DX: K80.43 Calculus of bile duct with acute cholecystitis with obstruction (principal); K82.A1 Gangrene of gallbladder in cholecystitis; Z20.822 Contact with and (suspected) exposure to COVID-19; Z90.710 Acquired absence of both cervix and uterus; Z96.651 Presence of right artificial knee joint; Z79.899 Other long term (current) drug therapy; E03.9 Hypothyroidism, unspecified; Z79.2 Long term (current) use of antibiotics; R79.89 Other specified abnormal findings of blood chemistry; I10 Essential (primary) hypertension
CPT/HCPCS: 00790; 36415; 71046; 74300; 76705; 76942; 80053; 81001; 83690; 85025; 87070; 87075; 87077; 87184; 87205; 88304; 93005; 93010; 96374; 96375; 99285-25; A9270; C9803; G0378; J0131; J0330; J0690; J1100; J1644; J1885; J2185; J2270; J2405; J2704; J2795; J3010; J3475; J3480; J7030; J7040; J7060; J7121; Q9967; U0003

== ENCOUNTER 2022-01-29 09:22 | Emergency (ER) | payer MEDICARE, OTHER ==
[~2022-01-29] VITALS: Ht 152.4 cm; Wt 55.0 kg
[~2022-01-29 09:22] MED LIST changes: +ACETAMINOPHEN500 MG PO; +LEVOTHYROXINE75 MCG PO; +LOSARTAN-HCTZ1 EAC2 PO; +OXYCODON-ACETA1 EAC2 PO; +PRAMIPEXOLE0.125 MG PO; +VENLAFAXINE HCL75 M1 PO; +VITAMIN D21250 MCG PO
--- OUTSIDE RECORDS SUMMARY | 2022-01-29 09:24 | XMS ---
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 EBrent VISIT COUNT (12 MO.) 2 [facility] TOTAL 2 NOTE: Visits indicate total known visits. 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
== END 2022-01-29 11:40 | disposition home or self-care (01) ==
LOC: ED 09:22
DX: R53.1 Weakness (principal); Z98.890 Other specified postprocedural states; Z90.49 Acquired absence of other specified parts of digestive tract; I10 Essential (primary) hypertension; E03.9 Hypothyroidism, unspecified; Z79.899 Other long term (current) drug therapy
CPT/HCPCS: 36415; 80053; 81001; 83690; 85025; 99284

== ENCOUNTER 2023-06-04 14:49 | Emergency (ER) | payer MEDICARE, OTHER ==
[~2023-06-04] VITALS: Ht 152.4 cm; Wt 61.2 kg
--- NOTE | ~2023-06-04 | EKG ---
[facility] [address] [facility] [place], [place] [address] Draft EK completed, results pending confirmation PATIENT NAME: LIYA WILSON Electrocardiogram DATE OF : 40 PHYSICIAN: PRELIMINARY REPORT #: [id number] REPORT IS CONFIDENTIAL AND NOT TO BE RELEASED WITHOUT AUTHORIZATION
--- OUTSIDE RECORDS SUMMARY | ~2023-06-04 | XMS | Continuity of Care Document ---
Demographics + + + | Address | [address] | | | [place] [address] | + + + | Preferred Language | Unknown | + + + | Marital Status | | + + + | Zoroastrian Affiliation | Unknown | + + + | Race | White | + + + | Ethnic Group | Not or | + + + Author + + + | Author | [facility] | + + + | Organization | [facility] | + + + | Address | [address] | | | [place] [address] | + + + | Phone | | + + + Care Team Providers + + + + | Care Line Assembler Aircraft Name | Role | Phone | + + + + Unavailable | Unavailable | + + + + Unavailable | Unavailable | + + + + Unavailable | Unavailable | + + + + Unavailable | Unavailable | + + + + Allergies and Intolerances + + + + + + | date | description | facility | reaction | severity | + + + + + + | (no date) | No Known | [facility] | (no reaction) | (no severity) | | | Allergies | | | | + + + + + + | (no date) | No Known Drug | [facility] | (no reaction) | (no severity) | | | Allergies | | | | + + + + + + | (no date) | NO KNOWN | [facility] | (no reaction) | (no severity) | | | ALLERGIES | | | | + + + + + + Encounters No information. Functional Status No information. Immunizations + + + + | date | description | facility | + + + + | 2023-05-16 00:00 | Tdap | [facility] | + + + + | 2023-05-16 00:00 | Tdap | [facility] | + + + + | 2023-05-16 00:00 | Tdap | [facility] | + + + + Medications + + + + | date | description | facility | + + + + | 2023-05-20 00:00 | NAPROXEN | [facility] | + + + + | 2023-05-20 00:00 | NAPROXEN | [facility] | + + + + | 2023-05-16 00:00 | VENLAFAXINE HCL | [facility] | + + + + | 2023-05-20 00:00 | VENLAFAXINE HCL | [facility] | + + + + | 2023-05-21 00:00 | VENLAFAXINE HCL | [facility] | + + + + | 2023-05-16 00:00 | PRAMIPEXOLE DI-HCL | [facility] | + + + + | 2023-05-20 00:00 | PRAMIPEXOLE DI-HCL | [facility] | + + + + | 2023-05-21 00:00 | PRAMIPEXOLE DI-HCL | [facility] | + + + + | 2023-05-16 00:00 | LEVOTHYROXINE SODIUM | [facility] | + + + + | 2023-05-20 00:00 | LEVOTHYROXINE SODIUM | [facility] | + + + + | 2023-05-21 00:00 | LEVOTHYROXINE SODIUM | [facility] | + + + + | 2023-05-16 00:00 | | [facility] | | | LOSARTAN/HYDROCHLOROTHIAZID | | | | E | | + + + + | 2023-05-20 00:00 | | [facility] | | | LOSARTAN/HYDROCHLOROTHIAZID | | | | E | | + + + + | 2023-05-21 00:00 | | [facility] | | | LOSARTAN/HYDROCHLOROTHIAZID | | | | E | | + + + + Problems + + + + | date | description | facility | + + + + | 2022-01-22 00:00 | Acute cholecystitis | [facility] | + + + + | 2022-01-22 00:00 | Acute cholecystitis | [facility] | + + + + | 2022-01-22 00:00 | Acute cholecystitis | [facility] | + + + + | 2022-01-22 22:22 | HYPOTHYROIDISM, | [facility] | | | UNSPECIFIED | | + + + + | 2022-01-22 22:22 | Essential (primary) | [facility] | | | hypertension | | + + + + | 2022-01-22 22:22 | CALCULUS OF BILE DUCT W | [facility] | | | ACUTE CHOLECYSTITIS WITH O | | + + + + | 2022-01-22 22:22 | ACUTE CHOLECYSTITIS | [facility] | + + + + | 2022-01-22 22:22 | GANGRENE OF GALLBLADDER IN | [facility] | | | CHOLECYSTITIS | | + + + + | 2022-01-22 22:22 | OTHER SPECIFIED ABNORMAL | [facility] | | | FINDINGS OF BLOOD CIGAR INSPECTOR | | + + + + | 2022-01-22 22:22 | LONGTERM (CURRENT) USE OF | [facility] | | | ANTIBIOTICS | | + + + + | 2022-01-22 22:22 | OTHER LONGTERM (CURRENT) | [facility] | | | DRUG THERAPY | | + + + + | 2022-01-22 22:22 | 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 | | + + + + | 2022-01-22 22:22 | 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 | | + + + + | 2022-11-25 14:49 | SPONDYLOSIS W/O MYELOPATHY | [facility] | | | OR RADICULOPATHY, CERVICAL | | | | REGION | | + + + + | 2022-12-21 09:54 | SPONDYLOSIS W/O MYELOPATHY | [facility] | | | OR RADICULOPATHY, CERVICAL | | | | REGION | | + + + + | 2023-05-16 00:00 | Contusion of forearm | [facility] | + + + + | 2023-05-16 00:00 | Contusion of forearm | [facility] | + + + + | 2023-05-16 00:00 | Contusion of forearm | [facility] | + + + + | 2023-05-16 00:00 | Abrasion of forearm | [facility] | + + + + | 2023-05-16 00:00 | Abrasion of forearm | [facility] | + + + + | 2023-05-16 00:00 | Abrasion of forearm | [facility] | + + + + | 2023-05-16 21:24 | HYPOTHYROIDISM, | [facility] | | | UNSPECIFIED | | + + + + | 2023-05-16 21:24 | Essential (primary) | [facility] | | | hypertension | | + + + + | 2023-05-16 21:24 | PAIN IN RIGHT ARM | [facility] | + + + + | 2023-05-16 21:24 | ABRASION OF RIGHT FOREARM, | [facility] | | | INITIAL ENCOUNTER | | + + + + | 2023-05-16 21:24 | LACERATION W/O FOREIGN | [facility] | | | BODY OF RIGHT FOREARM, INIT | | | | | | + + + + | 2023-05-16 21:24 | FALL SAME LEV FROM | [facility] | | | SLIP/TRIP W/O STRIKE | | | | AGAINST OB | | + + + + | 2023-05-16 21:24 | HORMONE REPLACEMENT | [facility] | | | THERAPY | | + + + + | 2023-05-16 21:24 | OTHER THREAD WEAVER (CURRENT) | [facility] | | | DRUG THERAPY | | + + + + | 2023-05-20 00:00 | Cellulitis of right | [facility] | | | forearm | | + + + + | 2023-05-20 00:00 | Cellulitis of right | [facility] | | | forearm | | + + + + | 2023-05-20 12:14 | HYPOTHYROIDISM, | [facility] | | | UNSPECIFIED | | + + + + | 2023-05-20 12:14 | Essential (primary) | [facility] | | | hypertension | | + + + + | 2023-05-20 12:14 | CELLULITIS OF RIGHT UPPER | [facility] | | | LIMB | | + + + + | 2023-05-20 12:14 | PUNCTURE WOUND W/O FOREIGN | [facility] | | | BODY OF RIGHT FOREARM, | | | | INIT | | + + + + | 2023-05-20 12:14 | HORMONE REPLACEMENT | [facility] | | | THERAPY | | + + + + | 2023-05-20 12:14 | OTHER THREAD WEAVER (CURRENT) | [facility] | | | DRUG THERAPY | | + + + + | 2023-05-21 00:00 | Second degree | [facility] | | | atrioventricular block | | + + + + | 2023-05-21 00:00 | Congestive heart failure | [facility] | + + + + | 2023-05-21 00:00 | Infection of forearm | [facility] | + + + + | 2023-05-21 00:00 | Elevated troponin level | [facility] | + + + + | 2023-05-21 12:08 | HYPERTENSIVE HEART DISEASE | [facility] | | | WITH HEART FAILURE | | + + + + | 2023-05-21 12:08 | ATRIOVENTRICULAR BLOCK, | [facility] | | | SECOND DEGREE | | + + + + | 2023-05-21 12:08 | HEART FAILURE, UNSPECIFIED | [facility] | | | | | + + + + | 2023-05-21 12:08 | SHORTNESS OF BREATH | [facility] | + + + + | 2023-05-21 12:08 | HORMONE REPLACEMENT | [facility] | | | THERAPY | | + + + + | 2023-05-21 12:08 | OTHER THREAD WEAVER (CURRENT) | [facility] | | | DRUG THERAPY | | + + + + | 2023-05-25 17:34:14 | Atrioventricular block, | [facility] | | | second degree | | + + + + | 2023-05-25 18:19:58 | Conduction disorder, | [facility] | | | unspecified | | + + + + | 2023-05-30 11:36:34 | Atrioventricular block, | [facility] | | | second degree | | + + + + | 2023-05-30 11:36:34 | Conduction disorder, | [facility] | | | unspecified | | + + + + | 2023-05-30 11:36:34 | Cerebral infarction, | [facility] | | | unspecified | | + + + + | 2023-05-30 11:36:34 | Bronchitis, not specified | [facility] | | | as acute or chronic | | + + + + Procedures No information. Results/Labs +--------+--------+ +---------+--------+---------+ | test | date | facility | value | unit | notes | +--------+--------+ +---------+--------+---------+ + + | Result panel 1 | + + + + + +--------+ + + | | 2023-05-20 | [facility] | 11.8 | (missing) | (missing) | | (unavailable | [facility] | | | + + + +--------+ + + + + | Result panel 2 | + + + + + +------+ + + | | 2023-05-20 | [facility] | 56 | (missing) | (missing) | | (unavailable | [facility]01:07 [facility] | | | | + + + +------+ + + + + | Result panel 3 | + + + + + +------+ + + | | 2023-05-20 | [facility] | 40 | (missing) | (missing) | | (unavailable | [facility]01:07 [facility] | | | | + + + +------+ + + + + | Result panel 4 | + + + + + +-----+ + + | | 2023-05-20 | [facility] | 2 | (missing) | (missing) | | (unavailable | [facility]:07 [facility] | | | | + + + +-----+ + + + + | Result panel 5 | + + + + + +-----+ + + | | 2023-05-20 | [facility] | 0 | (missing) | (missing) | | (unavailable | [facility]:07 [facility] | | | | + + + +-----+ + + + + | Result panel 6 | + + + + + +-----+ + + | | 2023-05-20 | [facility] | 2 | (missing) | (missing) | | (unavailable | [facility] | | | | + + + +-----+ + + + + | Result panel 7 | + + + + + +--------+ + + | | 2023-05-20 | [facility] | 3.88 | (missing) | (missing) | | (unavailable | [facility] | | | | + + + +--------+ + + + + | Result panel 8 | + + + + + +--------+ + + | | 2023-05-20 | [facility] | 11.7 | (missing) | (missing) | | (unavailable | [facility] | | | | + + + +--------+ + + + + | Result panel 9 | + + + + + +--------+ + + | | 2023-05-20 | [facility] | 35.2 | (missing) | (missing) | | (unavailable | [facility] | | | | + + + +--------+ + + + + | Result panel 10 | + + + + + +--------+ + + | | 2023-05-20 | [facility] | 90.9 | (missing) | (missing) | | (unavailable | [facility] | | | | + + + +--------+ + + + + | Result panel 11 | + + + + + +------+ + + | | 2023-05-20 | [facility] | 56 | (missing) | (missing) | | (unavailable | [facility]:07 [facility] | | | | + + + +------+ + + + + | Result panel 12 | + + + + + +------+ + + | | 2023-05-20 | [facility] | 40 | (missing) | (missing) | | (unavailable | [facility]01[facility]07 [facility] | | | | + + + +------+ + + + + | Result panel 13 | + + + + + +-----+ + + | | 2023-05-20 | [facility] | 2 | (missing) | (missing) | | (unavailable | [facility]01:07 [facility] | | | | + + + +-----+ + + + + | Result panel 14 | + + + + + +-----+ + + | | 2023-05-20 | [facility] | 0 | (missing) | (missing) | | (unavailable | [facility]01:07 [facility] | | | | + + + +-----+ + + + + | Result panel 15 | + + + + + +-----+ + + | | 2023-05-20 | [facility] | 2 | (missing) | (missing) | | (unavailable | [facility]01:07 [facility] | | | | + + + +-----+ + + + + | Result panel 16 | + + + + + +--------+ + + | | 2023-05-20 | [facility] | 30.1 | (missing) | (missing) | | (unavailable | [facility]01:07 [facility] | | | | + + + +--------+ + + + + | Result panel 17 | + + + + + +--------+ + + | | 2023-05-20 | [facility] | 33.2 | (missing) | (missing) | | (unavailable | [facility]01[facility]07 [facility] | | | | + + + +--------+ + + + + | Result panel 18 | + + + + + +--------+ + + | | 2023-05-20 | [facility] | 14.1 | (missing) | (missing) | | (unavailable | [facility]01[facility]07 [facility] | | | | + + + +--------+ + + + + | Result panel 19 | + + + + + +-------+ + + | | 2023-05-20 | [facility] | 182 | (missing) | (missing) | | (unavailable | [facility]01:07 [facility] | | | | + + + +-------+ + + + + | Result panel 20 | + + + + + +-------+ + + | | 2023-05-21 | [facility] | 9.6 | (missing) | (missing) | | (unavailable | 13::07 [facility] | | | | + + + +-------+ + + + + | Result panel 21 | + + + + + +--------+ + + | | 2023-05-21 | [facility] | 3.79 | (missing) | (missing) | | (unavailable | 13::07 [facility] | | | | + + + +--------+ + + + + | Result panel 22 | + + + + + +--------+ + + | | 2023-05-21 | [facility] | 11.4 | (missing) | (missing) | | (unavailable | [facility]01:07 [facility] | | | | + + + +--------+ + + + + | Result panel 23 | + + + + + +--------+ + + | | 2023-05-21 | [facility] | 34.7 | (missing) | (missing) | | (unavailable | [facility]01:07 [facility] | | | | + + + +--------+ + + + + | Result panel 24 | + + + + + +--------+ + + | | 2023-05-21 | [facility] | 91.7 | (missing) | (missing) | | (unavailable | [facility]01:07 [facility] | | | | + + + +--------+ + + + + | Result panel 25 | + + + + + +--------+ + + | | 2023-05-21 | [facility] | 30.2 | (missing) | (missing) | | (unavailable | [facility]01:07 [facility] | | | | + + + +--------+ + + + + | Result panel 26 | + + + + + +--------+ + + | | 2023-05-21 | [facility] | 32.9 | (missing) | (missing) | | (unavailable | [facility]01:07 [facility] | | | | + + + +--------+ + + + + | Result panel 27 | + + + + + +--------+ + + | | 2023-05-21 | [facility] | 14.3 | (missing) | (missing) | | (unavailable | [facility]01:07 [facility] | | | | + + + +--------+ + + + + | Result panel 28 | + + + + + +-------+ + + | | 2023-05-21 | [facility] | 192 | (missing) | (missing) | | (unavailable | [facility]01:07 [facility] | | | | + + + +-------+ + + + + | Result panel 29 | + + + + + +--------+ + + | | 2023-05-21 | [facility] | 76.3 | (missing) | (missing) | | (unavailable | [facility]01:07 [facility] | | | + + + +--------+ + + + + | Result panel 30 | + + + + + +--------+ + + | | 2023-05-21 | [facility] | 17.5 | (missing) | (missing) | | (unavailable | [facility]07 [facility] | | | | + + + +--------+ + + + + | Result panel 31 | + + + + + +-------+ + + | | 2023-05-21 | [facility] | 5.7 | (missing) | (missing) | | (unavailable | [facility]01[facility]07 [facility] | | | | + + + +-------+ + + + + | Result panel 32 | + + + + + +-------+ + + | | 2023-05-21 | [facility] | 0.0 | (missing) | (missing) | | (unavailable | [facility]07 [facility] | | | | + + + +-------+ + + + + | Result panel 33 | + + + + + +-------+ + + | | 2023-05-21 | [facility] | 0.5 | (missing) | (missing) | | (unavailable | [facility]07 [facility] | | | | + + + +-------+ + + + + | Result panel 34 | + + + + + +-------+---------+ + | | 2023-05-21 | [facility] | 110 | mg/dL | (missing) | | (unavailable | [facility]01:07 [facility] | | | | + + + +-------+---------+ + + + | Result panel 35 | + + + + + +------+---------+ + | | 2023-05-21 | [facility] | 22 | mg/dL | (missing) | | (unavailable | [facility]01:07 [facility] | | | | + + + +------+---------+ + + + | Result panel 36 | + + + + + +--------+---------+ + | | 2023-05-21 | [facility] | 0.82 | mg/dL | (missing) | | (unavailable | [facility]01:07 [facility] | | | | + + + +--------+---------+ + + + | Result panel 37 | + + + + + +------+ + + | | 2023-05-21 | [facility] | 71 | (missing) | (missing) | | (unavailable | [facility]01:07 [facility] | | | | + + + +------+ + + + + | Result panel 38 | + + + + + +---------+ + + | | 2023-05-21 | [facility] | 26.82 | (missing) | (missing) | | (unavailable | [facility]01:07 [facility] | | | | + + + +---------+ + + + + | Result panel 39 | + + + + + +-------+ + + | | 2023-05-21 | [facility] | 139 | (missing) | (missing) | | (unavailable | [facility]01:07 [facility] | | | | + + + +-------+ + + + + | Result panel 40 | + + + + + +-------+ + + | | 2023-05-21 | [facility] | 3.9 | (missing) | (missing) | | (unavailable | [facility] | | | | + + + +-------+ + + + + | Result panel 41 | + + + + + +-------+ + + | | 2023-05-21 | [facility] | 100 | (missing) | (missing) | | (unavailable | [facility]01:07 [facility] | | | | + + + +-------+ + + + + | Result panel 42 | + + + + + +------+ + + | | 2023-05-21 | [facility] | 30 | (missing) | (missing) | | (unavailable | [facility]:07 [facility] | | | | + + + +------+ + + + + | Result panel 43 | + + + + + +--------+ + + | | 2023-05-21 | [facility] | 12.9 | (missing) | (missing) | | (unavailable | [facility]01:07 [facility] | | | | + + + +--------+ + + + + | Result panel 44 | + + + + + +-------+---------+ + | | 2023-05-21 | [facility] | 8.4 | mg/dL | (missing) | | (unavailable | [facility]01:07 [facility] | | | | + + + +-------+---------+ + + + | Result panel 45 | + + + + + +-------+---------+ + | | 2023-05-21 | [facility] | 2.2 | mg/dL | (missing) | | (unavailable | [facility]01:07 [facility] | | | | + + + +-------+---------+ + + + | Result panel 46 | + + + + + +-------+ + + | | 2023-05-21 | [facility] | 6.8 | (missing) | (missing) | | (unavailable | [facility]01:07 [facility] | | | | + + + +-------+ + + + + | Result panel 47 | + + + + + +-------+ + + | | 2023-05-21 | [facility] | 3.2 | (missing) | (missing) | | (unavailable | 13::07 [facility] | | | | + + + +-------+ + + + + | Result panel 48 | + + + + + +-------+ + + | | 2023-05-21 | [facility] | 3.6 | (missing) | (missing) | | (unavailable | [facility]01:07 [facility] | | | | + + + +-------+ + + + + | Result panel 49 | + + + + + +--------+ + + | | 2023-05-21 | [facility] | 0.89 | (missing) | (missing) | | (unavailable | 13::07 [facility] | | | | + + + +--------+ + + + + | Result panel 50 | + + + + + +-------+ + + | | 2023-05-21 | [facility] | 0.5 | (missing) | (missing) | | (unavailable | 13::07 [facility] | | | | + + + +-------+ + + + + | Result panel 51 | + + + + + +------+ + + | | 2023-05-21 | [facility] | 22 | (missing) | (missing) | | (unavailable | ::07 [facility] | | | | + + + +------+ + + + + | Result panel 52 | + + + + + +------+ + + | | 2023-05-21 | [facility] | 24 | (missing) | (missing) | | (unavailable | ::07 [facility] | | | | + + + +------+ + + + + | Result panel 53 | + + + + + +-------+ + + | | 2023-05-21 | [facility] | 145 | (missing) | (missing) | | (unavailable | [facility]01:07 [facility] | | | | + + + +-------+ + + + + | Result panel 54 | + + + + + +---------+ + + | | 2023-05-21 | [facility] | 219.3 | (missing) | (missing) | | (unavailable | 14:40:07 [facility] | | | | + + + +---------+ + + + + | Result panel 55 | + + + + + + + + + | | 2023-05-21 | [facility] | NEGATIVE | (missing) | (missing) | | (unavailable | [facility]00:07 [facility] | | | | + + + + + + + Social History No information. Vital Signs + + + +---------+ | date | measurement | value | units | + + + +---------+ | 2023-05-16 00:00 | BMI | 26.7 | kg/m2 | + + + +---------+ | 2023-05-16 00:00 | BP_diastolic | 109 | mmHg | + + + +---------+ | 2023-05-16 00:00 | BP_systolic | 179 | mmHg | + + + +---------+ | 2023-05-16 00:00 | heart_rate | 52 | /min | + + + +---------+ | 2023-05-16 00:00 | height_metric | 152.4 | cm | + + + +---------+ | 2023-05-16 00:00 | height_standard | 60 | in | + + + +---------+ | 2023-05-16 00:00 | o2_saturation | 96 | % | + + + +---------+ | 2023-05-16 00:00 | respiration_rate | 14 | /min | + + + +---------+ | 2023-05-16 00:00 | temperature_metric | 36.89 | C | | | | | | + + + +---------+ | 2023-05-16 00:00 | | 98.4 | F | | | temperature_standar | | | | | d | | | + + + +---------+ | 2023-05-16 00:00 | weight_metric | 62 | kg | + + + +---------+ | 2023-05-16 00:00 | weight_standard | 136.69 | lb | + + + +---------+ | 2023-05-20 00:00 | BMI | 29.1 | kg/m2 | + + + +---------+ | 2023-05-20 00:00 | BP_diastolic | 53 | mmHg | + + + +---------+ | 2023-05-20 00:00 | BP_systolic | 161 | mmHg | + + + +---------+ | 2023-05-20 00:00 | heart_rate | 48 | /min | + + + +---------+ | 2023-05-20 00:00 | height_metric | 152.4 | cm | + + + +---------+ | 2023-05-20 00:00 | height_standard | 60 | in | + + + +---------+ | 2023-05-20 00:00 | o2_saturation | 94 | % | + + + +---------+ | 2023-05-20 00:00 | respiration_rate | 15 | /min | + + + +---------+ | 2023-05-20 00:00 | temperature_metric | 36.67 | C | | | | | | + + + +---------+ | 2023-05-20 00:00 | | 98 | F | | | temperature_standar | | | | | d | | | + + + +---------+ | 2023-05-20 00:00 | weight_metric | 67.7 | kg | + + + +---------+ | 2023-05-20 00:00 | weight_standard | 149.25 | lb | + + + +---------+ | 2023-05-21 00:00 | BMI | 26.4 | kg/m2 | + + + +---------+ | 2023-05-21 00:00 | BP_diastolic | 87 | mmHg | + + + +---------+ | 2023-05-21 00:00 | BP_systolic | 163 | mmHg | + + + +---------+ | 2023-05-21 00:00 | heart_rate | 51 | /min | + + + +---------+ | 2023-05-21 00:00 | height_metric | 152.4 | cm | + + + +---------+ | 2023-05-21 00:00 | height_standard | 60 | in | + + + +---------+ | 2023-05-21 00:00 | o2_saturation | 94 | % | + + + +---------+ | 2023-05-21 00:00 | respiration_rate | 20 | /min | + + + +---------+ | 2023-05-21 00:00 | temperature_metric | 37 | C | | | | | | + + + +---------+ | 2023-05-21 00:00 | | 98.6 | F | | | temperature_standar | | | | | d | | | + + + +---------+ | 2023-05-21 00:00 | weight_metric | 61.35 | kg | + + + +---------+ | 2023-05-21 00:00 | weight_standard | 135.25 | lb | + + + +---------+"
--- OUTSIDE RECORDS SUMMARY | ~2023-06-04 | XMS | Continuity of Care Document ---
Demographics + + + | Address | [address] | | | [place] [address] | + + + | Preferred Language | Unknown | + + + | Marital Status | | + + + | Episcopalian Affiliation | Unknown | + + + | Race | White | + + + | Ethnic Group | Not or | + + + Author + + + | Author | [facility] | + + + | Organization | [facility] | + + + | Address | [address] | | | [place] [address] | + + + | Phone | | + + + Care Team Providers + + + + | Care Animal Shelter Manager Name | Role | Phone | + [...] + | 2023-05-16 00:00 | Tdap | [facility] | + + + + | 2023-05-16 00:00 | Tdap | [facility] | + + + + | 2023-05-16 00:00 | Tdap | [facility] | + + + + Medications + + + + | date | description | facility | + + + + | 2023-05-20 00:00 | NAPROXEN | [facility] | + + + + | 2023-05-20 00:00 | NAPROXEN | [facility] | + + + + | 2023-05-16 00:00 | VENLAFAXINE HCL | [facility] | + + + + | 2023-05-20 00:00 | VENLAFAXINE HCL | [facility] | + + + + | 2023-05-21 00:00 | VENLAFAXINE HCL | [facility] | + + + + | 2023-05-16 00:00 | PRAMIPEXOLE DI-HCL | [facility] | + + + + | 2023-05-20 00:00 | PRAMIPEXOLE DI-HCL | [facility] | + + + + | 2023-05-21 00:00 | PRAMIPEXOLE DI-HCL | [facility] | + + + + | 2023-05-16 00:00 | LEVOTHYROXINE SODIUM | [facility] | + + + + | 2023-05-20 00:00 | LEVOTHYROXINE SODIUM | [facility] | + + + + | 2023-05-21 00:00 | LEVOTHYROXINE SODIUM | [facility] | + + + + | 2023-05-16 00:00 | | [facility] | | | LOSARTAN/HYDROCHLOROTHIAZID | | | | E | | + + + + | 2023-05-20 00:00 | | [facility] | | | LOSARTAN/HYDROCHLOROTHIAZID | | | | E | | + + + + | 2023-05-21 00:00 | | [facility] | | | LOSARTAN/HYDROCHLOROTHIAZID | | | | E | | + + + + Problems + + + + | date | description | facility | + + + + | 2022-01-22 00:00 | Acute cholecystitis | [facility] | + + + + | 2022-01-22 00:00 | Acute cholecystitis | [facility] | + + + + | 2022-01-22 00:00 | Acute cholecystitis | [facility] | + + + + | [...] [facility] | | | 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 | | + + + + | 2022-01-22 22:22 | RETIREMENT (CURRENT) USE OF | [facility] | | | ANTIBIOTICS | | + + + + | 2022-01-22 22:22 | OTHER RETIREMENT (CURRENT) | [facility] | | | DRUG [...] 00:00 | Contusion of forearm | [facility] | + + + + | 2023-05-16 00:00 | Contusion of forearm | [facility] | + + + + | 2023-05-16 00:00 | Contusion of forearm | [facility] | + + + + | 2023-05-16 00:00 | Abrasion of forearm | [facility] | + + + + | 2023-05-16 00:00 | Abrasion of forearm | [facility] | + + + + | 2023-05-16 00:00 | Abrasion of forearm | [facility] | + + + + | [...] + + | 2023-05-16 21:24 | 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) | [facility] | | | DRUG THERAPY | | + + + + | 2023-05-20 00:00 | Cellulitis of right | [facility] | | | forearm | | + + + + | 2023-05-20 00:00 | Cellulitis of right | [facility] | | | forearm | | [...] + + | 2023-05-20 12:14 | 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
[~2023-06-04 14:49] MED LIST changes: +NAPROSYN500 MG PO
--- OUTSIDE RECORDS SUMMARY | 2023-06-04 14:56 | XMS ---
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 Current PHONE: [phone] Nita has no Care Guidelines for this patient. E.Young VISIT COUNT (12 MO.) [facility] [address] [place] [address] TOTAL 5 NOTE: Visits indicate total known visits. ED/UCC VISIT TRACKING (12 MO.) 06/04/2023 14:50 [facility] [place] TYPE: Emergency COMPLAINT: - LETHARGIC, NEW PACEMAKER 06/01/2023 18:29 [facility] TYPE: Emergency DIAGNOSES: - Essential (primary) hypertension - Gait Problem - high blood pressure, had pacemaker a week ago put in - Hypertension 05/21/2023 12:08 [facility] [place] TYPE: Emergency COMPLAINT: - SOB/WOUND CHECK DIAGNOSES: - Atrioventricular block, second degree - Contact with and (suspected) exposure to COVID-19 - Heart failure, unspecified - Hormone replacement therapy - Hypertensive heart disease with heart failure - Other residential (current) drug therapy - Shortness of breath 05/20/2023 12:14 [facility] TYPE: Emergency COMPLAINT: - RIGHT ARM AND HAND PAIN, HEADACHE DIAGNOSES: - Cellulitis of right upper limb - Essential (primary) hypertension - Hormone replacement therapy - Hypothyroidism, unspecified - 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 - Puncture wound without foreign body of right forearm, initial encounter 05/16/2023 21:24 [facility] [place] TYPE: Emergency COMPLAINT: - RT ARM LACERATION DIAGNOSES: - Abrasion of right forearm, initial encounter - Essential (primary) hypertension - Fall on same level from slipping, tripping and stumbling without subsequent striking against object, initial encounter - Hormone replacement therapy - Hypothyroidism, unspecified - Laceration without foreign body of right forearm, initial encounter - 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 TYPE: General Medicine COMPLAINT: - bradycardia DIAGNOSES: - Atrioventricular block, second degree - Bronchitis, not specified as acute or chronic - Cerebral infarction, unspecified - Conduction disorder, unspecified - Conduction disorder, unspecified 05/21/2023 22:59 [facility] TYPE: Intensive Care COMPLAINT: - CHF exacerbation DIAGNOSES: - Atrioventricular block, second degree - Atrioventricular block, second degree [email or web address]
[2023-06-04 18:26] VITALS: BP 186/70
== END 2023-06-04 18:27 | disposition home or self-care (01) ==
LOC: ED 14:49
DX: R53.1 Weakness (principal); I10 Essential (primary) hypertension; Z79.890 Hormone replacement therapy; Z79.899 Other long term (current) drug therapy
CPT/HCPCS: 36415; 71045; 71260; 80053; 81001; 82803; 83735; 83880; 84484; 85025; 85379; 93005; 93010; Q9967

== ENCOUNTER 2025-02-28 14:28 | Emergency (ER) | payer MEDICARE, OTHER ==
[~2025-02-28] VITALS: Ht 152.4 cm; Wt 59.0 kg
[~2025-02-28 14:28] MED LIST changes: +CEPHALEXIN500 M1 PO
[2025-02-28 19:54] LABS: BASOPHILS 0.8 % (0-2); HEMATOCRIT 38.7 % (35.0-50.0); LYMPHOCYTES 39.9 % (24-44); MCH 30.4 (27-36); MCHC 33.7 g/dl (30-36); MCV 90.2 fl (81-99); MONOCYTES 8.1 % (0-12); NEUTROPHILS 51.2 % (39-80); PLATELET COUNT 200 K/uL (140-440); RBC 4.29 M/ul (4.3-5.7); RDW 14.6 (10.5-15.0)
[2025-02-28 20:08] LABS: ALBUMIN 3.4 g/dL (3.4-5.0); ALBUMIN/GLOBULIN RATIO 0.94 (1.1-2.4); ANION GAP 7.6 (7-21); BILIRUBIN, TOTAL 0.2 mg/dL (0.2-1.0); BUN/CREATININE RATIO 31.18 (6.0-28.6); CALCIUM 9.4 mg/dL (8.5-10.1); CREATININE, SERUM 0.93 mg/dL (0.55-1.02); MAGNESIUM 2.1 mg/dL (1.8-2.4); POTASSIUM 3.6 mmol/L (3.5-5.1)
[2025-02-28] MEDS ORDERED: CLEOCIN HCL300 MG PO (20:29)
[2025-02-28] MEDS ORDERED: TRAMADOL HCL50 MG PO (20:29)
[2025-02-28] MEDS ORDERED: TRAMADOL HCL 50 MG HOME.PACK PO ONE (20:45)
[2025-02-28] MEDS ORDERED: clindamycin HCL 300 MG HOME.PACK PO ONE (20:45)
[2025-02-28 20:49] VITALS: BP 172/87
== END 2025-02-28 20:50 | disposition home or self-care (01) ==
LOC: ED 14:28
PROVIDERS: Family Medicine
DX: T85.79XA Infection and inflammatory reaction due to other internal prosthetic devices, implants and grafts, initial encounter (principal); I10 Essential (primary) hypertension; E03.9 Hypothyroidism, unspecified; Z79.890 Hormone replacement therapy; Z79.899 Other long term (current) drug therapy
CPT/HCPCS: 36415; 80053; 83735; 85025; 99283; A9270